=== PATIENT | female | born 1985 | race Hispanic/Latino ===

== ENCOUNTER 2017-12-25 17:58 | Emergency (ER) | payer BC ==
[2017-12-25] MEDS ORDERED: Pantoprazole 40 MG VIAL ONE (18:34)
[2017-12-25] MEDS ORDERED: Ondansetron HCl/PF 4 MG/2 ML Vial ONE (18:34)
[2017-12-25 18:59] LABS: BHCG - Serum Negative (NEGATIVE); Pregs Control Background? CLEAR/WHITE (CLR/WHITE); Pregs Control Bar Appear? YES (CONTROL BAR)
[2017-12-25 19:04] LABS: Band 5 % (5-11); Hemoglobin 13.8 g/dL (12.0-16.0); Lymphocytes 16 % (21-51); MDiff Complete? YES; Mean Corpuscular HGB CONC 32.6 g/dL (32.0-36.0); Mean Corpuscular Hemoglobin 26.1 pg (27.0-31.0); Mean Corpuscular Volume 80.1 fl (81.0-99.0); Mean Platelet Volume 9.7 fL (7.4-10.4); Monocytes 9 % (0-10); Neutrophil 69 % (42-75); PLT Morphology Comment Appears Adequate; Platelet Count 243 thou/uL (130-400); RBC Distribution Width 14.2 % (11.5-14.5); RBC Morphology Normal; Red Blood Cell (RBC) Count 5.28 mill/uL (4.20-5.40); White Blood Cell (WBC) Count 5.6 thou/uL (4.8-10.8)
[2017-12-25 19:05] LABS: ALT (SGPT) 55 U/L (8-55); AST (SGOT) 35 U/L (5-34); Albumin 4.4 g/dL (3.5-5.0); Alkaline Phosphatase 106 U/L (40-150); Anion Gap 15 mmol/L (10-20); BUN (Urea Nitrogen) 10 mg/dL (7.0-18.7); Bilirubin, Total 1.2 mg/dL (0.2-1.2); Calc. Creatinine Clearance 0 mL/min (70-130); Calcium 9.2 mg/dL (7.8-10.44); Carbon Dioxide 24 mmol/L (22-29); Chloride 103 mmol/L (98-107); Estimated GFR-MDRD 87; Globulin 3.4 g/dL (2.4-3.5); Glucose 98 mg/dL (70-105); Lipase 32 U/L (8-78); Potassium 3.8 mmol/L (3.5-5.1); Protein, Total 7.8 g/dL (6.0-8.3); Sodium 138 mmol/L (136-145)
[2017-12-25 19:17] LABS: Bilirubin Small (Negative); Blood, Urine Large (Negative); Clarity Cloudy (Clear); Glucose, Urine (Dipstick) Negative (Negative); Leukocyte Trace (Negative); Nitrite Negative (Negative); Protein, Urine (Dipstick) 30 mg/dL (Neg-Trace); Specific Gravity, Urine 1.015 (1.005-1.030); pH, Urine 6.5 (5.0-9.0)
[2017-12-25 19:23] LABS: Bacteria/HPF None Seen HPF (None Seen); RBC/HPF GREATER THAN 50-TNTC HPF (0-3); Squamous Epithelial 0-3 HPF (0-3); WBC/HPF 0-3 HPF (0-3)
--- NOTE | 2017-12-25 22:22 | CT ---
CT ABDOMEN AND PELVIS WITH CONTRAST 12/25/17 HISTORY: Abdominal pain. COMPARISON: None. FINDINGS: The lung bases are clear. No pericardial effusion. Diffuse hepatic steatosis. Prior cholecystectomy. The appendix is visualized and is normal. An intrauterine device is in place. No evidence for bowel obstruction. There are multiple areas of [place] bmucosal fatty infiltration; and transverse colon to suggest chronic inflammatory bowel disease. Smal l external iliac lymph nodes are present bilaterally. The aortoiliac contour is nonaneurysmal. Pancre as and spleen are unremarkable. No hydronephrosis. There is a small focal area of enhancement in hepatic segment measuring 11 mm. IMPRESSION: 1. No acute inflammatory process abdomen or pelvis. 2. Normal appendix. 3. Focal area of hyperenhancement hepatic segment , series 2, image 22. May represent focal ar ea of fatty sparring given the background of hepatic steatosis. This is incompletely evaluated. Flash filling hemangioma also a possibility versus adenoma and FNH. 4. Likely reactive small bilateral external iliac lymph nodes. 5. Large bilateral L5 transverse processes without anomalous articulation with the sacrum. 6. Mild sclerosis of the ilium bilateral at the SI joints. POS: [facility]
== END 2017-12-25 21:10 | disposition home or self-care (01) ==
LOC: SCSER 17:58
DX: R10.12 Left upper quadrant pain (principal)
CPT/HCPCS: 74177; 80053; 81003; 81015; 83690; 84703; 85025; 96361; 96372; 96374; 96375; C9113; J2405

== ENCOUNTER 2017-12-28 13:25 | Day surgery (SDC) | payer BC ==
[2017-12-27 17:49] VITALS: BMI 49.1
[2017-12-28] MEDS ORDERED: Ondansetron HCl/PF 4 MG/2 ML Vial ONE (14:07)
[2017-12-28] MEDS ORDERED: Lidocaine 1% PF 5 ML VIAL ONE (15:01)
[2017-12-28] MEDS ORDERED: PROPOFOL 200 MG/20 ML VIAL ONE (15:01)
--- NOTE | 2017-12-31 11:46 | OP ---
DATE OF PROCEDURE: 12/28/2017 PREPROCEDURE DIAGNOSES: Right upper quadrant pain, periumbilical pain, recurrent nausea and vomiting . PROCEDURE PERFORMED: Esophagogastroduodenoscopy. POSTPROCEDURE DIAGNOSES: Normal esophagus, stomach, and duodenum. RECOMMENDATIONS: Consider empiric trial of Reglan versus HIDA scan. ANESTHESIA: TIVA. PROCEDURE IN DETAIL: After the patient was informed of the risks, benefits, possible complications o f endoscopy including perforation, reactions to medication and aspiration, informed consent. The pat ient was brought to endoscopy suite where she was sedated in gradual fashion. Once she was comfortab le, a bite block was placed in incisor orifice. The endoscope was advanced through the esophagus, st omach and second and third portion of duodenum and slowly removed. There was good visualization of m ucosa. There were no masses, lesions, arteriovenous malformations, erosive esophagitis, obstructions , ulcers or gastritis. The scope was removed. The patient tolerated the procedure well.
== END 2017-12-28 16:05 | disposition home or self-care (01) ==
LOC: SDC 13:25
PROVIDERS: ATTEND Internal Medicine Gastroenterology
PROC: 0DJ08ZZ Inspection of Upper Intestinal Tract, Via Natural or Artificial Opening Endoscopic (ICD-10-PCS; principal; 2017-12-28)
DX: R11.2 Nausea with vomiting, unspecified (principal); R10.13 Epigastric pain; R10.33 Periumbilical pain; R10.31 Right lower quadrant pain; R19.4 Change in bowel habit; K58.9 Irritable bowel syndrome, unspecified; K76.0 Fatty (change of) liver, not elsewhere classified; Z88.2 Allergy status to sulfonamides; Z91.018 Allergy to other foods; Z90.49 Acquired absence of other specified parts of digestive tract; Z98.890 Other specified postprocedural states; Z83.79 Family history of other diseases of the digestive system; Z83.71 Family history of colonic polyps
CPT/HCPCS: J2001; J2405; J2704

== ENCOUNTER 2018-01-25 07:37 | Outpatient (CLI) | payer BC ==
--- NOTE | 2018-01-25 13:53 | NM ---
NUCLEAR MEDICINE GASTRIC EMPTYING EXAM: CLINICAL HISTORY: Nausea and vomiting, unspecified, epigastric pain. FINDINGS: Gastric emptying half-time is calculated using geometric mean of 93 minutes. 76% emptying is calcula kaden at 124 minutes and near complete (96%) emptying calculated at 194 minutes. Imaging is performed for 247 minutes at which time there is no residual gastric activity. IMPRESSION: Gastric emptying half-time calculated at 93 minutes. POS: [facility]
== END 2018-01-25 07:38 | disposition home or self-care (01) ==
LOC: NM 07:37
PROVIDERS: ATTEND Internal Medicine Gastroenterology
DX: R10.13 Epigastric pain (principal); R19.8 Other specified symptoms and signs involving the digestive system and abdomen; R11.2 Nausea with vomiting, unspecified
CPT/HCPCS: 78264; A9541